=== PATIENT | female | born 1995 | race African-American/Black ===

== ENCOUNTER 2018-09-24 04:35 | Emergency (ER) | payer OTHER ==
[~2018-09-24] VITALS: Ht 162.6 cm; Wt 68.2 kg
[2018-09-24 04:36] VITALS: BP 127/70
[2018-09-24] MEDS ORDERED: PROT1TAB2 PO (06:27)
[2018-09-24] MEDS ORDERED: PANTOPRAZOLE 40MG TAB (PROTONIX) PO ONE (06:30)
== END 2018-09-24 06:38 | disposition home or self-care (01) ==
LOC: M ED 04:35
DX: K21.9 Gastro-esophageal reflux disease without esophagitis (principal)